=== PATIENT | female | born 1960 | race Caucasian/White ===

== ENCOUNTER 2019-09-20 11:42 | Outpatient (CLI) | payer BC ==
--- NOTE | 2019-09-20 13:43 | RAD ---
EXAM: Chest 2 views: HISTORY: Preoperative radiograph COMPARISON: None. FINDINGS: There is a normal-sized cardiomediastinal silhouette. There is no evidence of consolidation, mass, or pleural effusion. Degenerative changes are seen in the spine. IMPRESSION: No evidence of acute cardiopulmonary disease
== END 2019-09-20 11:43 | disposition home or self-care (01) ==
LOC: RAD-FRANK 11:42
PROVIDERS: ATTEND Nurse Practitioner Family
DX: Z01.818 Encounter for other preprocedural examination (principal)
CPT/HCPCS: 71046

== ENCOUNTER 2022-03-31 15:26 | Outpatient (CLI) | payer BC | END 2022-03-31 15:27 | disposition home or self-care (01) | LOC: RAD-FRANK 15:26 | PROVIDERS: ATTEND Nurse Practitioner Family | DX: R50.9 Fever, unspecified (principal); J98.4 Other disorders of lung | CPT/HCPCS: 71046 ==

== ENCOUNTER 2022-05-05 15:23 | Outpatient (CLI) | payer BC | END 2022-05-05 15:24 | disposition home or self-care (01) | LOC: RAD-FRANK 15:23 | PROVIDERS: ATTEND Nurse Practitioner Family | DX: R05.2 Subacute cough (principal) | CPT/HCPCS: 71046 ==

== ENCOUNTER 2022-05-29 09:46 | Outpatient (CLI) | payer BC | END 2022-05-29 09:47 | disposition home or self-care (01) | LOC: RAD-FRANK 09:46 | PROVIDERS: ATTEND Nurse Practitioner Family | DX: R07.89 Other chest pain (principal) | CPT/HCPCS: 71046 ==

== ENCOUNTER 2022-08-07 08:13 | Outpatient (CLI) | payer BC | END 2022-08-07 08:14 | disposition home or self-care (01) | LOC: RAD-FRANK 08:13 | PROVIDERS: ATTEND Nurse Practitioner Family | DX: R05.1 Acute cough (principal); K63.89 Other specified diseases of intestine | CPT/HCPCS: 71046 ==